=== PATIENT | female | born 1970 | race African-American/Black ===

== ENCOUNTER 2019-03-02 12:31 | Inpatient (IN) | payer OTHER, SELFPAY ==
[2019-03-02 13:21] LABS: Hemoglobin 6.4 g/dL (12.0-16.0); Mean Corpuscular HGB CONC 29.6 g/dL (32.0-36.0); Mean Corpuscular Volume 57.5 fL (78.0-98.0); RBC Distribution Width 19.8 % (11.5-14.5); Red Blood Cell (RBC) Count 3.78 mill/uL (4.20-5.40); White Blood Cell (WBC) Count 6.6 thou/uL (4.8-10.8)
[2019-03-02 13:22] LABS: #Eosinphils 0.1 thou/uL (0.0-0.7); #Lymphocytes 2.2 thou/uL (1.20-3.40); #Monocytes 0.7 thou/uL (0.11-0.59); #Neutrophils 3.6 thou/uL (1.40-6.50); %Basophils 0.4 % (0.0-1.0); %Eosinophils 1.3 % (0.0-10.0); %Lymphocytes 33.3 % (21.0-51.0); %Monocytes 10.7 % (0.0-10.0); %Neutrophils 54.2 % (42.0-75.0)
[2019-03-02 13:35] LABS: Anisocytosis MODERATE=16-30 cells (100X) (0-5/hpf); Hypochromia MODERATE=16-30 cells (100X) (0-5/hpf); MDiff Complete? YES; Microcytosis MODERATE=15-30 cells (100X) (0-5/hpf); Ovalocytes SLIGHT = 2-5 cells (100X) (0-1/hpf); Platelet Clumps SLIGHT; Platelet Morphology Comment PLT clumps seen-ADEQ; Poikilocytosis SLIGHT = 6-15 cells (100X) (0-5/hpf); Polychromasia SLIGHT = 2-3 cells (100X) (0-2/hpf); Reflex for Review?? YES; Schistocytes SLIGHT = 2-5 cells (100X) (0-1/hpf); Spherocytes SLIGHT = 1-5 cells (100X) (None Seen); Target Cells SLIGHT = 2-5 cells (100X) (0-1/hpf); Tear Drops SLIGHT = 2-5 cells (100X) (0-1/hpf)
[2019-03-02 13:36] LABS: ALT (SGPT) 9 U/L (8-55); AST (SGOT) 15 U/L (5-34); Albumin 3.8 g/dL (3.5-5.0); Alkaline Phosphatase 38 U/L (40-150); Anion Gap 15 mmol/L (10-20); BUN (Urea Nitrogen) 15 mg/dL (7.0-18.7); Bilirubin, Total 0.5 mg/dL (0.2-1.2); Calc. Creatinine Clearance 0 mL/min (70-130); Calcium 8.7 mg/dL (7.8-10.44); Carbon Dioxide 17 mmol/L (22-29); Chloride 107 mmol/L (98-107); Estimated GFR-MDRD 89; Globulin 3.3 g/dL (2.4-3.5); Glucose 101 mg/dL (70-105); Potassium 4.1 mmol/L (3.5-5.1); Protein, Total 7.1 g/dL (6.0-8.3); Sodium 135 mmol/L (136-145)
[2019-03-02] MEDS ORDERED: Morphine 4 MG/ML VIAL ONE (13:44)
[2019-03-02] MEDS ORDERED: Ondansetron PF 4 MG/2 ML Vial ONE (13:45)
[2019-03-02] MEDS ORDERED: Ketorolac Tromethamine 30 MG/ML VIAL ONE (13:45)
--- NOTE | 2019-03-02 14:15 | CT ---
EXAM: Abdomen and pelvic CT scan without contrast: HISTORY: Left flank pain COMPARISON: None FINDINGS: The visualized lung bases are clear. Liver: Unremarkable. Gallbladder: Unremarkable. Pancreas: Unremarkable Spleen: Unremarkable. Adrenal glands: Unremarkable. Kidneys: Left double-J ureteral stent is present. There is moderate dilatation of the left renal sintia ecting system and proximal to mid left ureter. A calculus is present at the mid right ureter adjacent the indwelling stent, with a maximum, transverse diameter of 5 mm. Uterus:There is enlargement and heterogeneity of the uterus. Punctate calcification involves the post erior right aspect of the uterus. Bowel: Incompletely assessed by noncontrast technique. Urinary Bladder: Minimally distended and unopacified . Adenopathy: No adenopathy within the abdomen or pelvis. Free Air: No free air. Ascites: No ascites. Osseous structures: No acute osseous abnormalities. IMPRESSION: 1. 5 mm calculus of the mid left ureter adjacent indwelling left ureteral stent with moderate left o bstructive uropathy. 2. Enlargement and heterogeneity of uterus. Recommend follow-up gynecologic consultation Transcribed Date/Time: 03/02/2019 2:27 PM
[2019-03-02 14:17] LABS: Bilirubin Negative (Negative); Blood, Urine Large (Negative); Clarity CLOUDY (Clear); Glucose, Urine (Dipstick) Negative (Negative); Leukocyte Large (Negative); Nitrite Negative (Negative); Protein, Urine (Dipstick) 100 mg/dL (Neg-Trace); Specific Gravity, Urine 1.017 (1.002-1.036); pH, Urine 6.5 (5.0-9.0)
[2019-03-02 14:19] LABS: Bacteria/HPF 2+ HPF (None Seen); RBC/HPF GREATER THAN 50-TNTC HPF (0-3)
[2019-03-02 14:21] LABS: Pathc Cast-AUWi Flag 3.12 (0-2.49)
[2019-03-02 14:32] LABS: Hyaline Casts/LPF 0-3 HYALINE CAST LPF (0-3 Hyaline); Other Casts/LPF None Seen LPF (0-3 Hyaline)
[2019-03-02] MEDS ORDERED: Amlodipine 5 MG TAB ONE (16:51)
[2019-03-02 17:08] LABS: Iron 20 ug/dL (50-170); Iron Binding Capacity, Total 400 mcg/dL (265-497)
[2019-03-02] MEDS ORDERED: Senokot S 8.6-50 MG TAB PO PRN (17:10)
[2019-03-02] MEDS ORDERED: Acetaminophen 325 MG TAB PO PRN (17:10)
[2019-03-02] MEDS ORDERED: Ondansetron ODT 4 MG TAB PO PRN (17:10)
[2019-03-02] MEDS ORDERED: Ondansetron PF 4 MG/2 ML Vial IVP PRN (17:10)
--- NOTE | 2019-03-02 18:40 | HP ---
PRIMARY CARE PHYSICIAN: [facility]. CHIEF COMPLAINT: Left flank pain. HISTORY OF PRESENT ILLNESS: A 48-year-old obese female with known history of hypertension and nephrolithiasis, status post stent placement in the left kidney in July 2019 as well as history of thalassemia, who presents to the hospital due to severe left flank pain. The patient reported that the left flank pain is severe with intensity of 10/10. There is no associated nausea, vomiting, fever, change in bowel habit, dysuria, hematuria. The patient, however, admitted to exertional dyspnea, but denied palpitations, dizziness, cough, or chest pain. The stent was placed in [facility] in July [address] Du. During that hospitalization, the patient was found to have thalassemia and also was transfused 2 units of packed red blood cells. The patient was treated in the ED with analgesic with improvement in left flank pain such that currently she rates her pain at 4/ 10. She, however, remained afebrile. PAST MEDICAL HISTORY: 1. Hypertension. 2. Nephrolithiasis. 3. Thalassemia. 4. Obesity. PAST SURGICAL HISTORY: 1. Tubal ligation. 2. Ureteral stent placement. FAMILY HISTORY: Significant for hepatitis and liver failure requiring liver transplant in mother. Multiple myeloma in father. Both parents had hypertension. Mother is also diabetic, but this was following liver transplant. SOCIAL HISTORY: The patient lives with mother. She denied recreational drug use. The patient is a never smoker. Also, denied alcohol use. ALLERGIES: THE PATIENT REPORTS NO KNOWN DRUG ALLERGY. HOME MEDICATIONS: 1. Oxybutynin, dose however is unknown. 2. Amlodipine 10 mg daily. 3. Lisinopril/hydrochlorothiazide, dose is unknown at this time. 4. Iron tablets one b.i.d. REVIEW OF SYSTEMS: A 12-point review of systems performed was negative other than pertinent positives and negatives included in the history of present illness. PHYSICAL EXAMINATION: VITAL SIGNS: On presentation, the patient had the following vitals. Blood pressure 167/95, pulse 87, respiratory rate 16, temperature 98, pain 10/10, SpO2 of 100% on room air. Most current blood pressure is 188/115. GENERAL: Obese female, in no obvious distress. Afebrile, anicteric, acyanotic. HEENT: Normocephalic, atraumatic. Pupils are equal and reacting to light. Oral mucosa is moist. NECK: Supple, nontender with full range of motion. No masses appreciated. RESPIRATORY: Good air entry bilaterally with no obvious crackle or rhonchi or use of accessory muscles. CARDIOVASCULAR: Regular rhythm and rate with normal heart sounds 1 and 2. No obvious murmur was appreciated. GI: Obese, soft, nontender, nondistended with normal bowel sounds. EXTREMITIES: Grossly normal looking, atraumatic with no edema, erythema, or cyanosis. Distal pulses are palpable. NEUROLOGIC: Conscious, alert, oriented x3 with appropriate mental status. Cranial nerves 2 through 12 are intact. The patient moves all extremities. DIAGNOSTIC DATA: CBC showed WBC count of 6.6, hemoglobin of 6.4, MCV of 57.5, platelets too numerous to process. Manual differential smear showed moderate hypochromia as well as platelet clumps. CMP showed sodium 135, potassium 4.1, chloride 107, CO2 of 17, anion gap 15, BUN 15, creatinine 0.83, glucose 101, calcium 8.7, total bilirubin 0.5, AST 15, ALT 9, alkaline phosphatase 38, total protein 7.1, albumin 3.8, globulin 3.3. Urinalysis showed cloudy yellow urine with pH of 6.5 and specific gravity of 1.017. Urine protein is positive as well as urine blood. However, glucose, ketones, nitrite, bilirubin were negative. Leukocyte esterase was positive. Microscopy showed greater than 50 to too numerous to count rbc's and wbc's, squamous epithelial cell is [address] scan of the abdomen and pelvis without contrast showed 5 mm calculus of the left mid ureter adjacent to an indwelling ureteral stent with moderate left obstructive uropathy. Enlargement and heterogeneity of the uterus also were noted. ASSESSMENT: 1. Left obstructing stone with mild obstructive uropathy despite indwelling stent. The patient reportedly was seen by urologist and had stent placement in 2018. She was supposed to have the stent removed in November, but for unclear reason, had not followed up. 2. Left flank pain. Improved with analgesic. This is due to nephrolithiasis. 3. Hypertension: Control is suboptimal with systolic blood pressure ranging from 160 to 200. The patient is supposed to be on lisinopril/hydrochlorothiazide and amlodipine, but apparently has not taken her medications today. 4. Anemia: Chronic vs acute on chronic. The patient reportedly was diagnosed with thalassemia in July 2018 during which she had blood transfusion. She has been on iron supplementation. Baseline hemoglobin are unknown at this time. She seem hemodynamically stable though reported exertional dyspnea. We do not have medical record from [facility]. Current hemoglobin is 6.4 with MCV of 55. The patient also is on iron supplementation. PLAN: 1. We will consult urologist for evaluation and treatment of obstructive uropathy due to nephrolithiasis. 2. We will get serum iron, TIBC, saturation, and ferritin. 3. We will transfuse PRBC if iron chemistry is not consistent with iron deficiency anemia. There is no emergent indication for blood transfusion. She also will benefit from Hematology consultation given history of thalassemia. 4. We will give the patient a dose of amlodipine now and restart her usual antihypertensives. 5. Analgesics as needed will also be provided. 6. The patient is full code. 7. DVT prophylaxis with SCDs will be provided. 8. We will keep the patient for observation at this time and further treatment and recommendation to depend on hospital course. Job ID: [id number] [facility]ACK HOSPITALIssac
[2019-03-02] MEDS: HYDROcodone/Acetaminophen 5/325 mg Tablet PO PRN ×2 (18:56→23:03)
[2019-03-02] MEDS: Lisinopril 20 MG TAB PO SCH (20:17)
[2019-03-03 05:53] LABS: #Eosinphils 0.1 thou/uL (0.0-0.7); #Lymphocytes 1.7 thou/uL (1.20-3.40); #Monocytes 0.5 thou/uL (0.11-0.59); #Neutrophils 4.3 thou/uL (1.40-6.50); %Basophils 0.6 % (0.0-1.0); %Eosinophils 1.9 % (0.0-10.0); %Monocytes 7.9 % (0.0-10.0); %Neutrophils 64.6 % (42.0-75.0); Hemoglobin 6.3 g/dL (12.0-16.0); Mean Corpuscular HGB CONC 30.2 g/dL (32.0-36.0); Mean Corpuscular Hemoglobin 17.1 pg (27.0-31.0); Mean Corpuscular Volume 56.5 fL (78.0-98.0); Mean Platelet Volume 5.7 fL (7.4-10.4); Platelet Count 279 thou/uL (130-400); RBC Distribution Width 19.4 % (11.5-14.5); Red Blood Cell (RBC) Count 3.71 mill/uL (4.20-5.40); White Blood Cell (WBC) Count 6.6 thou/uL (4.8-10.8)
[2019-03-03] MEDS: Lisinopril 20 MG TAB PO SCH ×2 (08:00→20:51)
[2019-03-03] MEDS: Hydrochlorothiazide 25 MG TAB PO SCH (08:01)
[2019-03-03] MEDS: HYDROcodone/Acetaminophen 5/325 mg Tablet PO PRN ×4 (08:01→18:14)
[2019-03-03] MEDS ORDERED: Iron Sucrose Complex 500 MG in Sodium Chloride 0.9% 250 ML 250 ML IVPB SCH (08:15)
--- NOTE | 2019-03-03 14:39 | PDOC.PN ---
- Subjective Encounter Start Date: 03/03/19 Encounter Start Time: 14:38 Patient lying in bed, she reports pain on left side of abdomen and left flank still present, she denies chest pain, palpitations, shortness of breath. - Objective Resuscitation Status - Order Detail: 03/02/19 17:10 Resuscitation Status Routine Resuscitation Status: FULL: Full Resuscitation MAR Reviewed: Yes Vital Signs & Weight: Vital Signs (12 hours) Temp Pulse Resp BP BP Pulse Ox 03/03/19 11:41 98.3 F 67 20 138/80 98 03/03/19 08:01 97 03/03/19 08:00 149/93 H 03/03/19 07:53 97.7 F 78 17 149/93 H 97 03/03/19 04:12 98.4 F 81 18 137/85 Weight Weight 235 lb 3.732 oz Result Diagrams: 03/03/19 05:31 03/02/19 13:09 Radiology Reviewed by me: Yes Phys Exam - Physical Examination Constitutional: NAD HEENT: moist MMs, oral pharynx no lesions Neck: supple Respiratory: no wheezing, clear to auscultation bilateral Cardiovascular: RRR, no significant murmur Gastrointestinal: soft, positive bowel sounds Musculoskeletal: pulses present Left flank tenderness Neurological: normal sensation, moves all 4 limbs Lymphatic: no nodes Skin: cap refill <2 seconds Dx/Plan (1) Nephrolithiasis Status: Acute (2) Obstructive uropathy Code(s): N13.9 - OBSTRUCTIVE AND REFLUX UROPATHY, UNSPECIFIED Status: Acute (3) Iron deficiency Code(s): E61.1 - IRON DEFICIENCY Status: Acute (4) Thalassemia Code(s): D56.9 - THALASSEMIA, UNSPECIFIED Status: Acute (5) HTN (hypertension) Code(s): I10 - ESSENTIAL (PRIMARY) HYPERTENSION Status: Acute - Plan cont current plan of care * Continue iron infusion and recheck iron and CBC in am * Transfuse as needed * Hematology following along with urology * Continue home medications ordered * Pain control as needed * Appreciate recommendations from hematology and urology services
--- NOTE | 2019-03-03 15:39 | CON ---
DATE OF CONSULTATION: 03/03/2019 HISTORY OF PRESENT ILLNESS: This is a 48-year-old female, I was asked to see by the hospitalist service, who admitted her with left flank pain and anemia. The patient has been seen by Dr. Talbot, he saw her at [facility] this past July and placed a stent for apparently a ureteral stone. After that, she had some family issues. Her father . 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 Says she still has a stent in. She came in yesterday with significant left flank pain. A CAT scan was done, which I have reviewed. She has some [id number] left hydro stent, appears to be in good position. There is a stone in the ureter. I do not know if this is the same stone. She had the stent placed for another one. We do not have any old x-rays from her here. She received some Toradol and felt much better and here was found to have a very low hemoglobin and she has a diagnosis of thalassemia and she is being transfused for this. Her creatinine when she came in was normal at 0.83. Her hemoglobin was 6.4, 6.3, and now being transfused. Urinalysis showed greater than 50 red cells, greater than 50 white cells, 2+ bacteria. Urine culture is still currently pending, and actually it does look like she is on any antibiotic currently. PAST MEDICAL HISTORY: She has had the kidney stone and the stent placed. She has a history of thalassemia, I think that was just diagnosed within the last year. She has some hypertension. PAST SURGICAL HISTORY: Also includes a tubal ligation. She currently is comfortable. She has been afebrile with stable vital signs through the night. She is currently being transfused. PLAN: At this point will be to see what her urine culture shows as it comes back. It does not appear that she needs to be on antibiotics at this point, with her vital signs being normal and feeling better. We will see what the final urine culture shows, she will be transfused Dr. Talbot. I think it would be reasonable to keep her in today and let Dr. Talbot re-establish contact with her, and if her culture does not show anything, perhaps she could have something done about the stone and the stent this week, but I will leave that up to him and his schedule. Job ID: [id number]
--- NOTE | 2019-03-03 16:10 | CON ---
DATE OF CONSULTATION: REASON FOR CONSULTATION: Anemia. HISTORY OF PRESENT ILLNESS: A 48-year-old female with history of unknown type of thalassemia and metromenorrhagia with uterine fibroids, presenting to the hospital with acute left flank pain and found to have an obstructive nephrolithiasis for which she has a known history. Upon admission, she was found to have a hemoglobin of 6.4 with an MCV of 57.5. The patient states that she was in the for 12 years and was told she was anemic and that was it, never had anything done. She has received approximately 60 transfusions in her life as per the patient's reported history. She complains of chronic fatigue, shortness of breath, and palpitations. The patient was admitted to [facility] in July of 2018, and transfused 2 units of blood there and supposedly had workup that diagnosed her thalassemia. The patient was also found to have very low iron and is currently receiving a dose of Venofer. She said she takes oral iron b.i.d. for the last month and follows with an BUILDING REPAIR MAINTENANCE SUPERVISOR, who is trying to get her indigent care coverage to help cover a hysterectomy. REVIEW OF SYSTEMS: Ten-point review of systems negative, except as per HPI. PAST MEDICAL HISTORY: Thalassemia, morbid obesity, hypertension, nephrolithiasis. PAST SURGICAL HISTORY: Tubal ligation, ureteral stent placement. FAMILY HISTORY: Anemia in her father, myeloma in her father, hepatitis and liver failure in her mother. SOCIAL HISTORY: Lives with her mother. No smoking. No alcohol. ALLERGIES: NO KNOWN DRUG ALLERGIES. CURRENT MEDICATIONS: Reviewed. PHYSICAL EXAMINATION: VITAL SIGNS: Temperature 97.7, pulse 78, blood pressure 149/93, respirations 17 , saturating 97% on room air. GENERAL APPEARANCE: The patient is lying in bed, in no acute distress. HEENT: Normocephalic, atraumatic. Pale mucosa. NECK: Supple. Respirations nonlabored and clear. CARDIOVASCULAR: S1 and S2. No tachycardia. ABDOMEN: Soft, nondistended, and nontender. Obese. EXTREMITIES: No edema. NEUROLOGIC: Cranial nerves 2 through 12 are grossly intact. PSYCHIATRIC: Awake, alert, and oriented x3. LABORATORY DATA: White blood cells 6.6, hemoglobin 6.3, MCV 56.5, platelets 279. Sodium 135, potassium 4.1, BUN 15, creatinine 0.83. Iron 20%, iron saturation 5 %, ferritin 4, TIBC 400. ASSESSMENT AND PLAN: A 48-year-old female with history of unknown subtype of thalassemia along with iron deficiency anemia from metromenorrhagia and uterine fibroids. The patient's hemoglobin is 6.3, which she states is at her baseline. This baseline is unlikely from thalassemia. As if her baseline was 6 , she would not have been able to be active in the and she was. It is likely also secondary to metromenorrhagia and extreme iron deficiency that has been ongoing. Agree with IV iron. She is getting one dose of Venofer today and should follow up in clinic for continuation of IV iron therapy as well as continue her oral iron. Due to history of thalassemia, she should also begin folic acid 1 mg daily. The patient will continue to work with BUILDING REPAIR MAINTENANCE SUPERVISOR to help in coverage for a hysterectomy to correct the source of iron deficiency. Thank you for this consult. Job ID: [id number] MTDD
[2019-03-03] MEDS ORDERED: hydrALAZINE 20 MG/ML VIAL SLOW IVP PRN (17:55)
[2019-03-03] MEDS ORDERED: Amlodipine 10 MG TAB PO SCH (18:00)
[2019-03-04] MEDS: Amlodipine 10 MG TAB PO SCH (08:22)
[2019-03-04] MEDS: Lisinopril 20 MG TAB PO SCH ×2 (08:22→19:47)
[2019-03-04] MEDS: Hydrochlorothiazide 25 MG TAB PO SCH (08:22)
[2019-03-04] MEDS: Folic Acid 1 MG TAB PO SCH (08:23)
[2019-03-04 12:42] LABS: Eosinophils 1 % (0-10); Hypochromia MODERATE=16-30 cells (100X) (0-5/hpf); Lymphocytes 23 % (21-51); MDiff Complete? YES; Mean Corpuscular HGB CONC 30.6 g/dL (32.0-36.0); Mean Corpuscular Hemoglobin 17.2 pg (27.0-31.0); Mean Corpuscular Volume 56.1 fL (78.0-98.0); Mean Platelet Volume 6.1 fL (7.4-10.4); Microcytosis MARKED = >30 cells (100X) (0-5/hpf); Monocytes 4 % (0-10); Neutrophil 71 % (42-75); Ovalocytes MODERATE= 6-15 cells (100X) (0-1/hpf); Platelet Count 319 thou/uL (130-400); Platelet Morphology Comment Appears Adequate; Polychromasia MODERATE = 3-4 cells (100X) (0-2/hpf); Promyelocytes 1 % (0-0); RBC Distribution Width 19.7 % (11.5-14.5); Red Blood Cell (RBC) Count 4.09 mill/uL (4.20-5.40); Schistocytes SLIGHT = 2-5 cells (100X) (0-1/hpf); Target Cells SLIGHT = 2-5 cells (100X) (0-1/hpf); White Blood Cell (WBC) Count 8.5 thou/uL (4.8-10.8)
[2019-03-04] MEDS: HYDROcodone/Acetaminophen 5/325 mg Tablet PO PRN ×2 (13:34→19:46)
[2019-03-04] MEDS ORDERED: Iron Sucrose Complex 500 MG in Sodium Chloride 0.9% 250 ML 250 ML IVPB SCH (15:30)
--- NOTE | 2019-03-04 19:59 | PRG ---
DATE OF SERVICE: 03/04/2019 SUBJECTIVE: The patient is a pleasant 48-year-old female with past medical history significant for recently diagnosed thalassemia of unknown type, chronic dysfunctional uterine bleeding, and known history of nephrolithiasis status post left ureteral stent placement, who presented to the hospital with complaints of left flank pain. The patient's pain regarding her left flank remains intermittent. She denies any dysuria at this time. The patient states that she did start her menstrual cycle today and has passed 1 clot thus far which is normal for her regarding her menstrual cycle. She has no chest pain or shortness of breath. She does continue to complain of some intermittent palpitations. She has ambulated without issue today. She is being seen in consultation both with Hematology and Urology. OBJECTIVE: VITAL SIGNS: Blood pressure is 137/87, pulse is 76, O2 saturation is 98% on room air, respirations are 18. GENERAL: The patient is a moderately obese female, resting comfortably in bed, in no acute distress. HEENT: Head is atraumatic and normocephalic. Mucous membranes are moist. Conjunctiva is pale. NECK: No carotid bruits. Trachea is midline. No JVD. CV: S1 and S2. Regular rate and rhythm. No appreciable murmurs, rubs, or gallops. LUNGS: Regular respiratory rate and pattern. Clear to auscultation bilaterally. ABDOMEN: Positive bowel sounds. Soft and nontender. No masses noted. EXTREMITIES: No lower extremity pitting edema. +2 DP pulses bilaterally. NEUROLOGIC: Cranial nerves 2 through 12 are intact. The patient is alert and oriented x3. SKIN: No obvious rashes or discolorations. LABORATORY DATA: Hemoglobin is 7, white blood cell count 8.5, hematocrit 22.9, platelets are 319. ASSESSMENT: 1. Acute on chronic anemia in the setting of thalassemia (unknown type) and dysfunctional uterine bleeding. 2. Questionable urinary tract infection, culture is pending. 3. Obstructive uropathy, followed by Dr. Talbot, status post left ureteral stent, known 5 mm calculus in left ureter. 4. Enlargement/heterogenicity of uterus per CT scan. PLAN: Awaiting urine culture results at this time. Dr. Talbot is following the patient and may remove ureteral stent this hospitalization. Continue IV iron transfusion and PRBC transfusion per Oncology. The patient has been told numerous times in the past that she would benefit from hysterectomy given her ongoing menorrhagia and dysfunctional uterine bleeding. This has not been feasible for the patient to accomplish as an outpatient. Given the patient's numerous comorbidities and complexity of this case, she does meet inpatient criteria at this time. Appreciate Urology and Hematology input. We will await urine culture results and provide continued pain maintenance and relief for the patient. Further recommendations based on hospital course. Job ID: [id number]
[2019-03-04] MEDS: Iron, Sodium Ferric Gluconate 250 MG in Sodium Chloride 0.9% 100 ML IVPB SCH (21:20)
--- NOTE | 2019-03-05 02:40 | CON ---
DATE OF CONSULTATION: 03/04/2019 CONSULT: [facility]. REASON FOR CONSULTATION: Retained stent and flank pain. HISTORY OF PRESENT ILLNESS: Mrs. Cleveland is a 48-year-old black female who I have previously seen for a left ureteral stone measuring about 5 mm. At that time, she underwent ureteral stenting, this was in July of 2018. I requested that she follow up for definitive stone management and she was also to be worked up for anemia, which I discovered at that time, which had not been resolved. The patient also had extremely heavy menstrual cycles and I also recommended that she follow up with an TRAIN OPERATOR. Due to the of her father, she could not her followup appointments as she stated that she was going through a lot of personal issues. During this time, she was also diagnosed with beta thalassemia and extremely bad fibroids, which caused significant dysfunctional uterine bleeding. On this hospitalization, she ended up coming in with shortness of breath, fatigue and severe left flank pain. A CT done on admission demonstrates a persistent retained ureteral stent from July, which has not been changed out. There is no evidence of encrustation on my review of the CT scan, although the stone is still present in the mid ureter. She is currently getting iron transfusion and further workup for possible hysterectomy in the future. She may require blood transfusions as well. I have been consulted for assistance regarding her retained ureteral stent and for discussion on her current stone, which is still in place. PAST MEDICAL HISTORY: 1. Nephrolithiasis. 2. Beta thalassemia. 3. Dysfunctional uterine bleeding. 4. Uterine fibroids. PAST SURGICAL HISTORY: 1. Tubal ligation. 2. Left ureteral stent placement. ALLERGIES: NONE. HOME MEDICATIONS: 1. Oxybutynin. 2. Lisinopril/hydrochlorothiazide. 3. Ferrous sulfate. 4. Amlodipine. FAMILY HISTORY: 1. Anemia in her father. 2. Myeloma in her father as well. 3. Liver failure with cirrhosis in her mother. SOCIAL HISTORY: The patient lives with her mother. Denies smoking or alcohol abuse. Denies illicit drug use. REVIEW OF SYSTEMS: A 12-point review of system was reviewed and otherwise negative, other than what was commented on the HPI. Specifically, the fatigue, shortness of breath and left flank pain. She is also having some urinary urgency and frequency symptoms. PHYSICAL EXAMINATION: GENERAL: No apparent distress, communicative and alert, well-nourished, well-developed obese. HEENT: Normocephalic, atraumatic. Pupils symmetric and round. Sclerae nonicteric. Trachea midline. CARDIOVASCULAR: Sinus tachycardic. Normal S1 and S2. CHEST: No increased work of breathing. Symmetric expansion. LUNGS: Clear anteriorly. ABDOMEN: Soft, nondistended, mild tenderness to palpation on the left. No tenderness on the right. No suprapubic tenderness. : Exam is deferred. EXTREMITIES: No clubbing, cyanosis, or edema. SKIN: Warm and dry. No rashes or lesions. MUSCULOSKELETAL: Full range of motion. No joint deformities or joint erythema noted. NEUROLOGIC: Cranial nerves 2 through 12 grossly intact. No focal motor deficits identified. PSYCHIATRIC: Alert, oriented x3. Appropriate mood and affect. LABORATORY EVALUATION: Full set of labs are in the [employer] system which I have reviewed. Of note, the patient's hemoglobin is currently 7 with a creatinine of 0.83. Sodium of 135. Urinalysis demonstrates 100 protein, large blood, greater than 50 white cells, greater than 50 red cells, 2+ bacteria, 7 to 10 squamous cells. No urine culture is currently seen in the system. IMAGING: CT from March 02 on the date of admission demonstrates a 5 mm calculus in the mid left ureter adjacent to the indwelling left ureteral stent with moderate left obstructive uropathy. There is enlargement and heterogeneity of the uterus. ASSESSMENT AND PLAN: A 48-year-old black female with beta thalassemia and significant anemia secondary to dysfunctional uterine bleeding with a retained left ureteral stent and a retained stone. This stent has been in for 6 months, but does not demonstrate any evidence of encrustation. Due to her lack of insurance, I would recommend removal of the stone on this hospitalization with a stent. The patient does need a urine culture before she can undergo ureteroscopy. I will go ahead and start her on Rocephin for potential urinary tract infection, although the squamous cells indicate that any bacteria collected is probably irrelevant. I have ordered a straight catheterization to collect the urine culture on her. We will start her on Rocephin for tomorrow and we gave her antibiotics for 24 hours and consider surgery on the following day on Monday. She will need to be n.p.o. after midnight on IV fluids. Blood transfusions will be at the discretion of the salesperson art objects. I discussed ureteroscopy and laser lithotripsy with removal of the stent and placement of a new stent afterwards, which I would leave on a string, so that she may remove on her own, so it does not become another issue of a retained stent. Risks and benefits of the surgery were discussed. Risks, which include, but are not limited to bleeding, infection, ureteral stricture, ureteral damage or perforation, damage to the bladder, incomplete stone removal, and need for further surgery. She understands that because she has retained stent, she is at high risk for ureteral stricture disease in the future. I strongly recommended that she can keep followup appointments to get a renal ultrasound in the future so that we may evaluate to see, if she has any hydronephrosis after her stent is removed. She states she will keep this appointment and I have asked her strongly to make sure she follows up for all appointments and not to leave the stent indwelling as she did this time as she may have severe risk for kidney damage, significant stone formation, loss of kidney or severe infections. She states she understands and will follow up all instructions. For now, we will plan for surgery on Monday as an add on case. I will continue to monitor and make recommendations. Job ID: [id number]
[2019-03-05] MEDS: cefTRIAXone\\ROCEPHIN 1 GM in Sodium Chloride 0.9% 100 ML IVPB SCH (05:46)
[2019-03-05] MEDS: HYDROcodone/Acetaminophen 5/325 mg Tablet PO PRN ×3 (08:20→19:41)
[2019-03-05 08:22] LABS: #Eosinphils 0.1 thou/uL (0.0-0.7); #Lymphocytes 2.4 thou/uL (1.20-3.40); #Monocytes 0.7 thou/uL (0.11-0.59); #Neutrophils 5.7 thou/uL (1.40-6.50); %Basophils 0.2 % (0.0-1.0); %Eosinophils 1.4 % (0.0-10.0); %Monocytes 7.2 % (0.0-10.0); %Neutrophils 64.1 % (42.0-75.0); Hemoglobin 7.7 g/dL (12.0-16.0); Mean Corpuscular HGB CONC 30.7 g/dL (32.0-36.0); Mean Corpuscular Hemoglobin 17.3 pg (27.0-31.0); Mean Corpuscular Volume 56.3 fL (78.0-98.0); Platelet Count 379 thou/uL (130-400); RBC Distribution Width 20.2 % (11.5-14.5); Red Blood Cell (RBC) Count 4.46 mill/uL (4.20-5.40)
[2019-03-05] MEDS: Hydrochlorothiazide 25 MG TAB PO SCH (08:22)
[2019-03-05] MEDS: Lisinopril 20 MG TAB PO SCH ×2 (08:23→19:40)
[2019-03-05] MEDS: Amlodipine 10 MG TAB PO SCH (08:23)
[2019-03-05] MEDS: Folic Acid 1 MG TAB PO SCH (08:23)
[2019-03-05 08:54] LABS: Elliptocytes SLIGHT = 2-5 cells (100X) (0-1/hpf); Hypochromia MODERATE=16-30 cells (100X) (0-5/hpf); MDiff Complete? YES; Microcytosis MODERATE=15-30 cells (100X) (0-5/hpf); Ovalocytes SLIGHT = 2-5 cells (100X) (0-1/hpf); Polychromasia MODERATE = 3-4 cells (100X) (0-2/hpf); Spherocytes SLIGHT = 1-5 cells (100X) (None Seen); Target Cells MODERATE= 6-15 cells (100X) (0-1/hpf)
[2019-03-05] MEDS: Iron, Sodium Ferric Gluconate 250 MG in Sodium Chloride 0.9% 100 ML IVPB SCH (09:05)
--- NOTE | 2019-03-05 17:08 | PDOC.PN ---
- Subjective Encounter Start Date: 03/05/19 Encounter Start Time: 17:06 Subjective: Patient with kidney stone s/p stent admitted due to left flank pain. -: Feeling better. For Ureteroscopy and stent echange tomorrow - Objective Resuscitation Status - Order Detail: 03/02/19 17:10 Resuscitation Status Routine Resuscitation Status: FULL: Full Resuscitation Vital Signs & Weight: Vital Signs (12 hours) Temp Pulse Resp BP BP Pulse Ox 03/05/19 08:23 89 144/90 H 03/05/19 08:00 97 03/05/19 07:42 98.3 F 89 18 148/90 H 97 Weight Admit Weight 235 lb 3.732 oz Weight 235 lb 3.732 oz I&O: 03/04/19 03/05/19 03/06/19 06:59 06:59 06:59 Intake Total 2355 480 Balance 2355 480 Result Diagrams: 03/05/19 07:55 03/02/19 13:09 Phys Exam - Physical Examination Constitutional: NAD obese HEENT: PERRLA, moist MMs Neck: no JVD, supple Respiratory: no wheezing, no rales, no rhonchi Cardiovascular: RRR Gastrointestinal: soft, non-tender, no distention, positive bowel sounds obese Musculoskeletal: no edema, pulses present Neurological: non-focal, moves all 4 limbs Psychiatric: A&O x 3 Dx/Plan (1) HTN (hypertension) Code(s): I10 - ESSENTIAL (PRIMARY) HYPERTENSION Status: Acute (2) Iron deficiency Code(s): E61.1 - IRON DEFICIENCY Status: Acute (3) Nephrolithiasis Status: Acute (4) Obstructive uropathy Code(s): N13.9 - OBSTRUCTIVE AND REFLUX UROPATHY, UNSPECIFIED Status: Acute (5) Thalassemia Code(s): D56.9 - THALASSEMIA, UNSPECIFIED Status: Acute - Plan Continue antibiotics and iron supplementation -: For ureteroscopy, later lithotripsy and stent echange tomorrow -: Continue current antihypertensive -: Analgesic as needed. -: Repeat CBC and BMP in the am. * .
[2019-03-06 06:08] LABS: #Eosinphils 0.3 thou/uL (0.0-0.7); #Lymphocytes 2.3 thou/uL (1.20-3.40); #Monocytes 0.4 thou/uL (0.11-0.59); #Neutrophils 4.5 thou/uL (1.40-6.50); %Basophils 0.5 % (0.0-1.0); %Eosinophils 3.7 % (0.0-10.0); %Lymphocytes 30.7 % (21.0-51.0); %Monocytes 5.8 % (0.0-10.0); %Neutrophils 59.4 % (42.0-75.0); Mean Corpuscular HGB CONC 31.2 g/dL (32.0-36.0); Mean Corpuscular Hemoglobin 17.5 pg (27.0-31.0); Mean Corpuscular Volume 56.1 fL (78.0-98.0); Platelet Count 333 thou/uL (130-400); RBC Distribution Width 20.2 % (11.5-14.5); Red Blood Cell (RBC) Count 4.03 mill/uL (4.20-5.40); White Blood Cell (WBC) Count 7.6 thou/uL (4.8-10.8)
[2019-03-06] MEDS: cefTRIAXone\\ROCEPHIN 1 GM in Sodium Chloride 0.9% 100 ML IVPB SCH (06:09)
[2019-03-06 06:35] LABS: Anion Gap 12 mmol/L (10-20); BUN (Urea Nitrogen) 12 mg/dL (7.0-18.7); Calc. Creatinine Clearance 138 mL/min (70-130); Calcium 9.3 mg/dL (7.8-10.44); Carbon Dioxide 26 mmol/L (22-29); Chloride 103 mmol/L (98-107); Estimated GFR-MDRD 88; Glucose 100 mg/dL (70-105); Sodium 137 mmol/L (136-145)
[2019-03-06] MEDS: Lisinopril 20 MG TAB PO SCH ×2 (08:30→20:34)
[2019-03-06] MEDS: Hydrochlorothiazide 25 MG TAB PO SCH (08:31)
[2019-03-06] MEDS: Amlodipine 10 MG TAB PO SCH (08:32)
[2019-03-06] MEDS: Folic Acid 1 MG TAB PO SCH (08:32)
--- NOTE | 2019-03-06 09:17 | PRG ---
DATE OF SERVICE: 03/05/2019 SUBJECTIVE: The patient is doing well. No complaints. Has very mild pain on the left. No fevers. OBJECTIVE: VITALS: Reviewed. Vital signs stable and afebrile. GENERAL: No apparent distress. CV: RRR ABDOMEN: Soft, nondistended. Mild tenderness to palpation in the left. EXTREMITIES: No edema. LABORATORY DATA: Hemoglobin is 7.7 today, creatinine stable Planning to go to OR tomorrow for ureteroscopy and lithotripsy with replacement of stent. A string will be left intact on the stent so that she may remove it herself in case she is lost to follow up, so she does not have a retained stent indefinitely. Job ID: [id number] [facility]
[2019-03-06] MEDS: HYDROcodone/Acetaminophen 5/325 mg Tablet PO PRN ×3 (11:25→23:18)
[2019-03-06] MEDS ORDERED: Fentanyl 100 MCG/2 ML VIAL ONE (13:30)
[2019-03-06] MEDS ORDERED: Midazolam HCl 2 mg/2 ml Vial ONE (13:30)
[2019-03-06] MEDS ORDERED: Iothalamate Meglumine 60% 50 ML VIAL FS ONE (13:49)
[2019-03-06] MEDS ORDERED: Promethazine HCl 25 MG/ML VIAL IM PRN (14:22)
[2019-03-06] MEDS ORDERED: Ondansetron HCl/PF 4 MG/2 ML Vial IVP PRN (14:22)
[2019-03-06] MEDS ORDERED: Promethazine HCl 25 MG/ML VIAL SLOW IVP PRN (14:22)
[2019-03-06] MEDS ORDERED: Labetalol HCl 100 MG/20 ML VIAL ONE ×2 (14:59→16:12)
--- NOTE | 2019-03-06 15:26 | PDOC.PN ---
- Subjective Encounter Start Date: 03/06/19 Encounter Start Time: 14:40 Subjective: Patient just back from urinary stent placement. Still very groggy. Some -: abdominal soreness. No other complaints. - Objective Resuscitation Status - Order Detail: 03/02/19 17:10 Resuscitation Status Routine Resuscitation Status: FULL: Full Resuscitation MAR Reviewed: Yes Vital Signs & Weight: Vital Signs (12 hours) Temp Pulse Resp BP BP Pulse Ox 03/06/19 12:00 98.4 F 18 148/97 H 96 03/06/19 08:08 98.3 F 75 18 149/85 H 96 Weight Admit Weight 235 lb 3.732 oz Weight 235 lb 3.732 oz I&O: 03/05/19 03/06/19 03/07/19 06:59 06:59 06:59 Intake Total 480 820 Balance 480 820 Result Diagrams: 03/06/19 05:46 03/06/19 05:46 Phys Exam - Physical Examination Constitutional: NAD HEENT: moist MMs Respiratory: no wheezing, no rales, no rhonchi Cardiovascular: RRR, no significant murmur Gastrointestinal: soft, positive bowel sounds TTP, no guarding Neurological: non-focal Deviation from normal: sleepy, not oriented yet Dx/Plan (1) Nephrolithiasis Status: Acute Comment: Stent changed out today (2) UTI (urinary tract infection) Status: Acute Comment: growing gram neg rods in urine, on Rocephin (3) Iron deficiency Code(s): E61.1 - IRON DEFICIENCY Status: Chronic Comment: iron infusion (4) HTN (hypertension) Code(s): I10 - ESSENTIAL (PRIMARY) HYPERTENSION Status: Chronic Qualifiers: Hypertension type: essential hypertension Qualified Code(s): I10 - Essential (primary) hypertension (5) Thalassemia Code(s): D56.9 - THALASSEMIA, UNSPECIFIED Status: Chronic Qualifiers: Thalassemia type: unspecified type Qualified Code(s): D56.9 - Thalassemia, unspecified Comment: told some sore of thalassemia at [facility], Dr. Steward believes that majority of issue is uterine fibroids with menorrhagia, needs hysterectomy, f/u [facility] outpatient - Plan cont current plan of care, continue antibiotics, DVT proph w/SCDs * . - Discharge Day Encounter end time: 15:00
[2019-03-06] MEDS ORDERED: Rocuronium Bromide 10 MG/ML (10ML VIAL) ONE (16:12)
[2019-03-06] MEDS ORDERED: ePHEDrine 50 MG/ML VIAL ONE (16:12)
[2019-03-06] MEDS ORDERED: PROPOFOL 200 MG/20 ML VIAL ONE (16:12)
[2019-03-06] MEDS ORDERED: Dexamethasone 20 MG/5 ML VIAL ONE (16:12)
[2019-03-06] MEDS ORDERED: Glycopyrrolate 0.2 MG/ML 5 ML SYRINGE ONE (16:12)
[2019-03-06] MEDS ORDERED: Lidocaine 1% PF 5 ML VIAL ONE (16:12)
[2019-03-06] MEDS ORDERED: Ondansetron PF 4 MG/2 ML Vial ONE (16:12)
[2019-03-07] MEDS: HYDROcodone/Acetaminophen 5/325 mg Tablet PO PRN ×3 (05:34→14:28)
[2019-03-07] MEDS: cefTRIAXone\\ROCEPHIN 1 GM in Sodium Chloride 0.9% 100 ML IVPB SCH (05:35)
[2019-03-07] MEDS: Folic Acid 1 MG TAB PO SCH (08:05)
[2019-03-07] MEDS: Hydrochlorothiazide 25 MG TAB PO SCH (08:05)
[2019-03-07] MEDS: Amlodipine 10 MG TAB PO SCH (08:06)
[2019-03-07] MEDS: Lisinopril 20 MG TAB PO SCH ×2 (08:06→20:21)
--- NOTE | 2019-03-07 08:07 | PDOC.PN ---
- Subjective Encounter Start Date: 03/07/19 Encounter Start Time: 11:50 Subjective: Patient with continued heavy period for the past few days. She states that -: typically it will last 3 weeks. Dyspneic if she walks down the hallway. -: Flank pain resolved. Stone removed yesterday, stent in place. Patient given instructions from urology about when she is to pull it out. - Objective Resuscitation Status - Order Detail: 03/02/19 17:10 Resuscitation Status Routine Resuscitation Status: FULL: Full Resuscitation MAR Reviewed: Yes Vital Signs & Weight: Vital Signs (12 hours) Temp Pulse Resp BP BP Pulse Ox 03/07/19 07:22 98.0 F 85 20 121/78 95 03/07/19 04:10 97.9 F 83 18 130/84 97 03/07/19 00:35 98.1 F 104 H 20 111/76 97 03/06/19 20:34 128/88 Weight Admit Weight 235 lb 3.732 oz Weight 235 lb 3.732 oz I&O: 03/06/19 03/07/19 03/08/19 06:59 06:59 06:59 Intake Total 820 Balance 820 Result Diagrams: 03/06/19 05:46 03/06/19 05:46 Phys Exam - Physical Examination Constitutional: NAD HEENT: moist MMs Respiratory: no wheezing, no rales, no rhonchi, clear to auscultation bilateral Cardiovascular: RRR, no significant murmur Gastrointestinal: soft, non-tender, positive bowel sounds Neurological: non-focal Psychiatric: normal affect, A&O x 3 Dx/Plan (1) Nephrolithiasis Status: Acute Comment: Stent changed out 03/06/19 (2) UTI (urinary tract infection) Status: Acute Comment: on Rocephin, growing mostly lactobacilus (3) Iron deficiency Code(s): E61.1 - IRON DEFICIENCY Status: Chronic Comment: iron infusion (4) HTN (hypertension) Code(s): I10 - ESSENTIAL (PRIMARY) HYPERTENSION Status: Chronic Qualifiers: Hypertension type: essential hypertension Qualified Code(s): I10 - Essential (primary) hypertension (5) Thalassemia Code(s): D56.9 - THALASSEMIA, UNSPECIFIED Status: Chronic Qualifiers: Thalassemia type: unspecified type Qualified Code(s): D56.9 - Thalassemia, unspecified Comment: told some sore of thalassemia at [facility], Dr. Steward believes that majority of issue is uterine fibroids with menorrhagia, needs hysterectomy, f/u [facility] outpatient (6) Menorrhagia Code(s): N92.0 - EXCESSIVE AND FREQUENT MENSTRUATION WITH REGULAR CYCLE Status : Acute Comment: Patient currently bleeding, already low and symptomatic. Will transfuse up to above 8. Will start Premarin 2.5mg TID to stop the current bleeding - Plan cont current plan of care, continue antibiotics If doing well after transfusion tomorrow can be discharged with course of -: premarin (Zofran for any nausea) to stabilize endometrium and halt bleeding -: and then when bleeding is stopped or minimal can be stopped and switched to -: medoxyprogesterone 10mg daily for 10 days for controlled bleed. PCP is -: trying to set up funding for outpatient hysterectomy. * . - Discharge Day Encounter end time: 12:10
[2019-03-07] MEDS ORDERED: Promethazine 25 MG TAB PO PRN (12:07)
[2019-03-07 14:20] VITALS: BMI 37.3
[2019-03-07 18:30] LABS: Hemoglobin 8.4 g/dL (12.0-16.0)
[2019-03-08] MEDS: HYDROcodone/Acetaminophen 5/325 mg Tablet PO PRN ×2 (00:13→13:26)
[2019-03-08] MEDS: cefTRIAXone\\ROCEPHIN 1 GM in Sodium Chloride 0.9% 100 ML IVPB SCH (05:39)
[2019-03-08 06:19] LABS: #Lymphocytes 2.7 thou/uL (1.20-3.40); #Monocytes 0.5 thou/uL (0.11-0.59); #Neutrophils 5.4 thou/uL (1.40-6.50); %Basophils 0.5 % (0.0-1.0); %Eosinophils 0.5 % (0.0-10.0); %Lymphocytes 31.3 % (21.0-51.0); %Monocytes 5.5 % (0.0-10.0); %Neutrophils 62.2 % (42.0-75.0); Anisocytosis MODERATE=16-30 cells (100X) (0-5/hpf); Elliptocytes SLIGHT = 2-5 cells (100X) (0-1/hpf); Hemoglobin 8.1 g/dL (12.0-16.0); Hypochromia MODERATE=16-30 cells (100X) (0-5/hpf); MDiff Complete? YES; Mean Corpuscular Hemoglobin 19.4 pg (27.0-31.0); Mean Corpuscular Volume 62.6 fL (78.0-98.0); Mean Platelet Volume 5.6 fL (7.4-10.4); Platelet Count 327 thou/uL (130-400); Platelet Morphology Comment Appears Adequate; RBC Distribution Width 29.6 % (11.5-14.5); Red Blood Cell (RBC) Count 4.18 mill/uL (4.20-5.40); White Blood Cell (WBC) Count 8.8 thou/uL (4.8-10.8)
[2019-03-08 07:18] VITALS: BP 143/86; TEMP 97.9
[2019-03-08] MEDS: Amlodipine 10 MG TAB PO SCH (09:05)
[2019-03-08] MEDS: Lisinopril 20 MG TAB PO SCH (09:05)
[2019-03-08] MEDS: Hydrochlorothiazide 25 MG TAB PO SCH (09:05)
[2019-03-08] MEDS: Folic Acid 1 MG TAB PO SCH (09:05)
--- NOTE | 2019-03-08 10:58 | RAD ---
XR Abdomen 1 View/KUB History: [Reason For Study] Comparison: CT scan protocol March 02, 2019 Findings: Similar appearance double-J left ureteral stent. Posterior calcifications inferior left rachel al collecting system is similar. Left renal calcification between the L4 and L5 transverse processes are similar. Numerous phleboliths in the pelvis. No abnormal calcifications projecting over the right renal shadow. Impression: Similar left renal collecting system and ureteral calcifications.
[2019-03-08] MEDS ORDERED: Sodium Chloride 0.9% 1,000 ML IV SCH (11:00)
--- NOTE | 2019-03-08 16:56 | PRG ---
DATE OF SERVICE: Coverage provided for Dr. Carlos Talbot REASON FOR EVALUATION: Inadvertent stent removal. history /surgical course reviewed SUBJECTIVE: Ms. Cleveland is a 48-year-old female, morbidly obese, previously seen by Dr. Talbot for left proximal ureteral calculi, 5 mm. She underwent previous left ureteral stent placement, and has failed to follow up. She was admitted over the weekend by Dr. Zepeda due to flank pain. CT demonstrated no significant incrustation. She did undergo left ureteroscopy, laser lithotripsy of a proximal ureteral calculi by Dr. Talbot this Monday. I did conference with Dr. Talbot. Surgery was uneventful. She had capacious passive dilated ureter. Stone was extracted uneventfully. No significant incrustation or bullous edema of the ureter was noted. She inadvertently pulled her stent out yesterday evening, and subsequently had continuous urinary incontinence. KUB was ordered per my request, reviewed : resolution of previous ureteral stone noted. Demonstrating stent migration out the urethra. I did not see any stone nidus along the course of the ureter of concern. Stent was removed in tact after I reviewed her KUB. VSS Denies fever, nausea or vomiting. exam: benign abdomen, no CVAT. she states she is hungry IMPRESSION AND PLAN: This is a 48-year-old female with history of left 5-mm ureteral stone, status post stent with retained stent due to noncompliance. Status post ureteroscopy, stone extraction, uneventfully. Inadvertent stent removal; however, she is tolerating it due to passive dilatation of chronic ureteral stent. No further intervention is warranted. She may follow up with Dr. Talbot as previously advised. Job ID: [id number] [facility]
--- NOTE | 2019-03-10 22:45 | DIS ---
DATE OF ADMISSION: 03/02/2019 DATE OF DISCHARGE: 03/08/2019 DISCHARGE DIAGNOSES: 1. Left ureteral stone. 2. Left flank pain. 3. Retained left ureteral stent. 4. Thalassemia. 5. Severe anemia. 6. Menorrhagia. HISTORY OF PRESENT ILLNESS: The patient is a 48-year-old female, who had initially presented with significant left flank pain to the emergency department. There, CT scan revealed left ureteral stone with a retained left ureteral stent. The patient apparently had a stent placed in July 2018 and for whatever reason did not have follow up and had the stent removed. It had been chronically indwelling for that period of time. The patient was also noted to have hemoglobin of around 6.4. The patient was placed in the hospital, started on IV fluids. Urine was cultured and she was seen in consultation by Dr. Zepeda, who had her see Dr. Talbot the following day on the , intervened the patient's case. He ultimately went and removed the ureteral stent, removed the stone, and replaced a new stent in the ureter. Subsequently, also he left a string visible, so the patient could pull her own stent should she not be able to have follow up as it occurred before. Unfortunately, the patient subsequently inadvertently pulled on the string causing the stent to come partially out. She was seen by Dr. Mcgee on-call, who ultimately had the stent simply removed. The patient tolerated all that fairly well. With respect to the patient's anemia, she was seen in consultation by Dr. Steward. He felt the patient's baseline hemoglobin was too low to be reflective of thalassemia in isolation and felt as though it was secondary to metromenorrhagia and severe iron deficiency, which was noted in her labs. He gave the patient some IV iron. She received 1 unit of packed red blood cells and he recommended the patient follow up with OB for consideration of hysterectomy. She had some assistance getting this set up through the hospital prior to discharge. PHYSICAL EXAMINATION: VITAL SIGNS: On the day of discharge, temperature 97.9, pulse 69, respirations 16, O2 saturation 97% on room air, BP 143/86. GENERAL: The patient was awake, alert, oriented, pleasant, and cooperative. HEART: Regular rate and rhythm without murmurs, gallops, or rubs. LUNGS: Clear bilaterally. ABDOMEN: Soft, nontender, and nondistended. DISPOSITION: The patient is discharged to home in stable condition. DIET: She will have a regular diet. ACTIVITY: Ad josias. MEDICATIONS: She will be on, 1. Tylenol No. 3 one q.6 hours p.r.n. 2. Premarin 2.5 mg q.8 hours. 3. Oxybutynin 10 mg t.i.d. 4. Lisinopril HCTZ 20/12.5 one b.i.d. 5. Ferrous sulfate 325 b.i.d. 6. Amlodipine 10 mg daily. FOLLOWUP: She will follow up with Dr. Talbot, Dr. Steward, and Dr. Ernst. She will follow up for consideration of hysterectomy and she can return to the hospital anytime as needed prior to her followup. Time spent in discharge activities, including face time with the patient, was 39 min. Job ID: [id number] [facility]
--- NOTE | 2019-03-11 14:32 | OP ---
DATE OF PROCEDURE: 03/06/2019 SERVICE: Urology. PREOPERATIVE DIAGNOSIS: Left retained ureteral stent with left mid ureteral stone. POSTOPERATIVE DIAGNOSIS: Left retained ureteral stent and left mid ureteral stone. PROCEDURE PERFORMED: Removal of encrusted stent with ureteroscopy and laser lithotripsy and basket extraction of stone fragments, replacement of a 6 x 26 double-J stent with string attached. INDICATION FOR PROCEDURE: Mrs. Cleveland is a 48-year-old black female, who I had previously seen in July at [facility] for a UTI with ureteral stone. She underwent a stent placement at that time and treatment of her urinary tract infection. She was scheduled to follow up with me for definitive ureteroscopy, but was lost to follow up and did not keep her followup appointments despite phone calls and attempts to contact her. She has now presented back to the hospital with anemia and blood loss secondary to a new diagnosis of beta thalassemia and it has been noted that she has her same stent still in place, which is bothering her. I discussed removal of the stent along with ureteroscopy and removal of the stone, which is still present. Risks and benefits of the surgery were discussed and she has agreed to proceed forward. DESCRIPTION OF PROCEDURE: After identification of armband and verification of consent, the patient was brought back to the operating room. She underwent general anesthesia with LMA. She was placed in dorsal lithotomy position and prepped and draped in usual sterile fashion. After appropriate time-out, a lubricated 22-Azeri rigid cystoscope was introduced per urethra into the bladder. The stent was seen emanating from the left ureteral orifice with actually a mild amount of encrustation. There was a standard bullous edema and inflammation within the bladder. The stent was grasped with flexible graspers and brought out to the level of the urethral meatus. The cystoscope was then inserted back into the bladder alongside the stent, and a 0.035 Sensor wire was advanced up the left ureter alongside the ureteral stent up to the level of renal pelvis. The distal aspect of the stent was grasped manually and extracted alongside of the stent until that was removed in its entirety. The stent did come out fairly easily without significant resistance, indicating minimal encrustation over the 6-month period the stent was in. With the Sensor wire in place, a semi-rigid ureteroscope was passed alongside the Sensor wire into the distal ureter up to the mid ureter, where the stone was seen impacted in the mid ureter. A 365 micron laser fiber was used to fragment the stone into small fragments and then a 1.9-Azeri ZeroTip Nitinol basket used to extract the fragments for stone analysis. Upon completion, all the fragments were removed. Ureteroscopy was performed all the way up to the ureteropelvic junction with the rigid ureteroscope and no additional stone fragments were found. Satisfied that the stones were all removed and the CT having demonstrated there were no additional stones within the kidney, the ureteroscope was then withdrawn. A 6 x 26 double-J stent was then advanced over the Sensor wire up to the level of the renal pelvis. Under radiographic control, the wire was then removed leaving a good curl in the kidney and a good curl in the bladder. A string was then affixed to the patient's inner thigh. She was then had her bladder emptied and was taken to PACU for recovery in stable condition. COMPLICATIONS: None. ESTIMATED BLOOD LOSS: Minimal. RETAINED TUBES AND DRAINS: A 6 x 26 double-J stent on the left with string attached. SPECIMEN: Stone for stone analysis. DISPOSITION: The patient will be discharged when she is deemed stable from the medical service. For now, she will be readmitted to the medical service for continued treatment of her thalassemia and iron deficiency. She is instructed to remove her stent herself by gently pulling the string in 1 week until the stent has been removed in its entirety. I will follow up with her in approximately 2 to 3 weeks for a postop check as well as discussing whether or not she wants to do a metabolic workup and ensure that she does not develop any ureteral strictures or hydronephrosis on repeat ultrasound. I told her that she will have to keep followup appointments, otherwise we cannot guarantee any of these things and she could later on have further and more serious problems downstream, if she fails to keep followup, inadequate monitoring of her renal function and for stricture disease. Job ID: [id number]
[2019-03-12 10:17] LABS: CA Oxalate Monohydrate 97 % (.); Color Brown (.); Stone Weight 67.4 mg (.)
== END 2019-03-08 18:38 | disposition home or self-care (01) | DRG 660 ==
LOC: ERS 12:31 → T4-A 17:48 → OBSVTOIN 17:48
PROVIDERS: ADMIT Internal Medicine Nephrology; ATTEND Internal Medicine Nephrology
PROC: 0T778DZ Dilation of Left Ureter with Intraluminal Device, Via Natural or Artificial Opening Endoscopic (ICD-10-PCS; principal; 2019-03-06)
PROC: 0TC78ZZ Extirpation of Matter from Left Ureter, Via Natural or Artificial Opening Endoscopic (ICD-10-PCS; 2019-03-06)
PROC: 0TP98DZ Removal of Intraluminal Device from Ureter, Via Natural or Artificial Opening Endoscopic (ICD-10-PCS; 2019-03-06)
DX: N13.8 Other obstructive and reflux uropathy (principal); N39.0 Urinary tract infection, site not specified; I10 Essential (primary) hypertension; E66.9 Obesity, unspecified; D25.9 Leiomyoma of uterus, unspecified; E61.1 Iron deficiency; N20.2 Calculus of kidney with calculus of ureter; Z98.51 Tubal ligation status; Z79.899 Other long term (current) drug therapy; Z68.37 Body mass index [BMI] 37.0-37.9, adult
CPT/HCPCS: 36415; 36430; 74018; 74176; 76000; 80048; 80053; 81003; 81015; 82365; 82728; 83540; 83550; 85014; 85018; 85025; 85060; 86850; 86900; 86901; 87086; 88300; 96361; 96374; 96375; C1769; J0696; J1100; J1756; J1885; J2001; J2250; J2270; J2405; J2704; J2916; J3010; J3490; J7050; P9016; Q9961

== ENCOUNTER 2020-06-04 06:10 | Day surgery (SDC) | payer OTHER, SELFPAY ==
[2020-06-03 09:26] VITALS: BMI 379.2
[2020-06-04] MEDS ORDERED: Midazolam HCl 2 mg/2 ml Vial ONE (06:13)
[2020-06-04] MEDS ORDERED: Fentanyl 100 MCG/2 ML VIAL ONE ×2 (06:13→06:48)
[2020-06-04] MEDS ORDERED: Lidocaine 2% Jelly 5 ML TUBE ONE (06:13)
[2020-06-04] MEDS ORDERED: Levofloxacin 500 mg/D5W 100 ml Premix Bag ONE (06:32)
[2020-06-04] MEDS ORDERED: Iothalamate Meglumine 60% 50 ML VIAL FS ONE (08:15)
[2020-06-04] MEDS ORDERED: B & O ONE (08:15)
[2020-06-04] MEDS ORDERED: Oxybutynin 5 MG TAB ONE (10:07)
[2020-06-04] MEDS ORDERED: Phenazopyridine HCl 97.5 MG TABLET ONE (10:09)
[2020-06-04] MEDS ORDERED: Dexamethasone 20 MG/5 ML VIAL ONE (10:53)
[2020-06-04] MEDS ORDERED: PROPOFOL 200 MG/20 ML VIAL ONE (10:53)
[2020-06-04] MEDS ORDERED: Ondansetron PF 4 MG/2 ML Vial ONE (10:53)
[2020-06-04] MEDS ORDERED: PHENYLEPHRINE-NS 100 MCG/ML 10 ML SYRINGE ONE (10:53)
[2020-06-04] MEDS ORDERED: Lidocaine 1% PF 5 ML VIAL ONE (10:53)
[2020-06-04] MEDS ORDERED: Morphine 2 MG/ML VIAL ONE (10:58)
--- NOTE | 2020-06-04 13:50 | OP ---
DATE OF PROCEDURE: 06/04/2020 SERVICE: Urology. PREOPERATIVE DIAGNOSIS: Left ureteral stone. POSTOPERATIVE DIAGNOSIS: Left ureteral stone. PROCEDURES PERFORMED: 1. Left ureteroscopy. 2. Laser lithotripsy. 3. Basket extraction of stone. 4. Placement of a 6 x 26 double-J stent. INDICATIONS FOR PROCEDURE: Ms. Cleveland is a 49-year-old black female who initially presented with a left ureteral stone with renal colic. She had failed outpatient management. She had a ureteral stent placed semi-urgently secondary to uncontrolled pain over the weekend. She is now coming in for definitive ureteroscopy and removal of her stone. Risks and benefits have been discussed and she has agreed to proceed forward. DESCRIPTION OF PROCEDURE: After identification of armband and verification of consent, the patient was brought back to the operating room where she underwent general anesthesia with LMA. She was then placed in a dorsal lithotomy position and prepped and draped in the usual sterile fashion. After appropriate time-out, a lubricated 22-Nepali rigid cystoscope was introduced per urethra into the bladder. Attention was turned to the left ureteral orifice, from which there was a stent emanating. A flexible grasper was used to grasp the stent and bring it up to the level of the urethral meatus. A 0.035 Sensor wire was then cannulated through the ureteral stent up to the level of renal pelvis. The stent was then removed and discarded. A semi-rigid ureteroscope was then brought in alongside the Sensor wire and cannulated through the left ureteral orifice up to the mid ureter where the stone was encountered. Using a 365 micron laser fiber, the stone was fragmented into small pieces and then all pieces were extracted using a 1.9-Nepali ZeroTip Nitinol basket. After all fragments were completely removed, the remainder of the ureter appeared clean. There was a mild amount of abrasions that where the stone was impacted. I did feel leaving a ureteral stent was necessary. I was not able to proceed any further up into the ureter using the ureteroscope. The patient did have fungus in the urine preoperatively and had some trace bacteria. Culture had been previously negative. The patient had failed to start her antibiotics as I instructed previous to the surgery. As such, I felt a little hesitant to try and go up into the kidney and remove the remaining small stone. It is relatively small and I do feel the stone could probably pass on its own. Out of concern for prolonging the ureteroscopy and potentially causing harm to the patient with infection, I decided to go ahead and finish the case at this point. The ureteroscope was withdrawn. A 6 x 26 double-J stent was advanced over the ureteral stent up to the level of renal pelvis. The wire was then removed and then there was a good curl seen fluoroscopically in the kidney and within the bladder. The cystoscope was then reinserted back into the bladder and visual confirmation of the distal curl was seen within the bladder. The bladder was emptied and the cystoscope removed. The patient had B and O suppository placed in the rectum. She was then taken out of positioning, awakened, taken to PACU for recovery in stable condition. COMPLICATIONS: None. ESTIMATED BLOOD LOSS: Minimal. RETAINED TUBES AND DRAINS: 6 x 26 double-J stent on the left. SPECIMENS: Stone for stone analysis. DISPOSITION: The patient will be discharged home and follow up with me in approximately 1 week for cystoscopy and stent removal. We will then have to plan for stone metabolic evaluation in the future. Job ID: [id number]
== END 2020-06-04 12:20 | disposition home or self-care (01) ==
LOC: SDC 06:10
PROVIDERS: ATTEND Urology
DX: N20.1 Calculus of ureter (principal); Z79.899 Other long term (current) drug therapy
CPT/HCPCS: 76000; 82365; 88300; 93005; 93010; J1100; J1956; J2250; J2270; J2405; J2704; J3010

== ENCOUNTER 2024-04-25 10:34 | Outpatient (CLI) | payer OTHER | END 2024-04-25 10:35 | disposition home or self-care (01) | LOC: MRI 10:34 | PROVIDERS: ATTEND Psychiatry & Neurology Epilepsy | DX: I62.9 Nontraumatic intracranial hemorrhage, unspecified (principal); I67.89 Other cerebrovascular disease | CPT/HCPCS: 70551 ==

== ENCOUNTER 2024-09-05 03:08 | Emergency (ER) | payer OTHER ==
[2024-09-05 04:11] LABS: #Basophils Less than 0.03 10x3/uL (0.0-0.2); %Basophils 0.2 % (0.0-1.0); %Eosinophils 0.5 % (0.0-10.0); %Monocytes 4.7 % (0.0-10.0); %Neutrophils 62.4 % (42.0-75.0); Hematocrit 32.5 % (36.0-47.0); Hemoglobin 11.4 g/dL (12.0-16.0); Mean Corpuscular HGB CONC 35.1 g/dL (32.0-36.0); Mean Corpuscular Hemoglobin 27.7 pg (27.0-31.0); Mean Corpuscular Volume 78.9 fL (78.0-98.0); Mean Platelet Volume 9.7 fL (7.4-10.4); Platelet Count 272 10x3/uL (130-400); RBC Distribution Width 16.1 % (11.5-14.5); Red Blood Cell (RBC) Count 4.12 mill/uL (4.20-5.40)
[2024-09-05 04:42] LABS: ALT (SGPT) 12 U/L (8-55); AST (SGOT) 11 U/L (5-34); Albumin 3.2 g/dL (3.5-5.0); Alkaline Phosphatase 54 U/L (40-110); Anion Gap 17 mmol/L (10-20); BUN (Urea Nitrogen) 19 mg/dL (9.8-20.1); Bilirubin, Total 0.3 mg/dL (0.2-1.2); CK (CPK) 30 U/L (29-168); Calc. Creatinine Clearance 0 mL/min (70-130); Calcium 8.9 mg/dL (7.8-10.44); Carbon Dioxide 23 mmol/L (22-29); Chloride 104 mmol/L (98-107); Estimated GFR 85; Globulin 4.6 g/dL (2.4-3.5); Glucose 108 mg/dL (70-105); Potassium 4.4 mmol/L (3.5-5.1); Protein, Total 7.8 g/dL (6.0-8.3); Sodium 140 mmol/L (136-145)
[2024-09-05 04:44] LABS: Troponin I Less than 0.010 ng/mL (< 0.028)
== END 2024-09-05 07:04 ==
LOC: ERS 03:08
DX: R56.9 Unspecified convulsions (principal); I10 Essential (primary) hypertension
CPT/HCPCS: 70450; 71045; 80053; 82550; 84484; 85025; 93005

== ENCOUNTER 2024-10-21 14:14 | Emergency (ER) | payer OTHER, MEDICAID ==
[2024-10-21 15:39] LABS: #Basophils Less than 0.03 10x3/uL (0.0-0.2); %Basophils 0.3 % (0.0-1.0); %Lymphocytes 29.4 % (21.0-51.0); %Monocytes 6.3 % (0.0-10.0); %Neutrophils 62.7 % (42.0-75.0); Hematocrit 31.6 % (36.0-47.0); Hemoglobin 11.3 g/dL (12.0-16.0); Mean Corpuscular HGB CONC 35.8 g/dL (32.0-36.0); Mean Corpuscular Hemoglobin 28.1 pg (27.0-31.0); Mean Corpuscular Volume 78.6 fL (78.0-98.0); Mean Platelet Volume 9.9 fL (7.4-10.4); Platelet Count 300 10x3/uL (130-400); RBC Distribution Width 14.9 % (11.5-14.5); Red Blood Cell (RBC) Count 4.02 mill/uL (4.20-5.40)
[2024-10-21 15:58] LABS: ALT (SGPT) 13 U/L (8-55); AST (SGOT) 14 U/L (5-34); Albumin 3.2 g/dL (3.5-5.0); Alkaline Phosphatase 65 U/L (40-110); Anion Gap 15 mmol/L (10-20); BUN (Urea Nitrogen) 25 mg/dL (9.8-20.1); Bilirubin, Total 0.2 mg/dL (0.2-1.2); Calc. Creatinine Clearance 0 mL/min (70-130); Calcium 8.7 mg/dL (7.8-10.44); Carbon Dioxide 23 mmol/L (22-29); Chloride 106 mmol/L (98-107); Estimated GFR 64; Globulin 4.8 g/dL (2.4-3.5); Glucose 99 mg/dL (70-105); Potassium 4.2 mmol/L (3.5-5.1); Sodium 140 mmol/L (136-145)
== END 2024-10-21 19:45 ==
LOC: ERS 14:14
DX: R56.9 Unspecified convulsions (principal); E11.9 Type 2 diabetes mellitus without complications; I10 Essential (primary) hypertension; Z86.73 Personal history of transient ischemic attack (TIA), and cerebral infarction without residual deficits; Z79.899 Other long term (current) drug therapy; Z79.84 Long term (current) use of oral hypoglycemic drugs
CPT/HCPCS: 70450; 80053; 80164; 85025; 93005

== ENCOUNTER 2025-06-18 20:14 | Emergency (ER) | payer OTHER ==
[2025-06-18] MEDS ORDERED: Ketorolac Tromethamine 30 MG (1 mL) VIAL ONE (21:53)
[2025-06-19 00:24] LABS: Bacteria/HPF None Seen HPF (None Seen); CAUTI Indications for Culture Acute Hematuria; Glucose, Urine (Dipstick) Normal (Negative); Leukocyte Negative Leu/uL (Negative); Protein, Urine (Dipstick) Negative (Neg-Trace); RBC/HPF 0-3 HPF (0-3); Specific Gravity, Urine 1.026 (1.002-1.036); WBC/HPF 0-3 HPF (0-3)
[2025-06-19 00:26] LABS: Urine Culture Reflex No No
== END 2025-06-19 01:00 | disposition home or self-care (01) ==
LOC: ERS 20:14
DX: S83.91XA Sprain of unspecified site of right knee, initial encounter (principal); I10 Essential (primary) hypertension; E11.9 Type 2 diabetes mellitus without complications; X50.1XXA Overexertion from prolonged static or awkward postures, initial encounter; Y93.89 Activity, other specified
CPT/HCPCS: 51701; 81001; 96372; 99283; J1885